=== PATIENT | female | born 1965 | race Caucasian/White ===

== ENCOUNTER → 2017-01-17 | Outpatient (CLI) | payer MEDICAID ==
[~2017-01-17] MED LIST: ALPR0.5T6 PO; B-1 PO; BIOTIN PO; DILT120C64 PO; FLEC50TA25 PO; FOLI0.4T2 PO; HYDR25TA11 PO; MAGN400T7 PO; MAGNESIUM PO; METO25TA35 PO; METO25TA91 PO; MULT1TAB60 PO; POTA20TA89 PO; POTASSIUM PO; RIVA20TA PO; SERT25TA PO; TOPI25TA32 PO; ZOLP10TA5 PO
[2017-01-17 12:53] LABS: ASPARTATE AMINO TRANSFERASE 19 U/L (15-37); BLOOD UREA NITROGEN 17 mg/dL (7-18)
== END | disposition home or self-care (01) ==
LOC: STAR 11:43
PROVIDERS: ATTEND Internal Medicine Cardiovascular Disease
DX: I48.91 Unspecified atrial fibrillation (principal)
CPT/HCPCS: 36415; 80053; 85025; 85610; 85730; 93005

== ENCOUNTER → 2017-01-17 | Outpatient (CLI) | payer MEDICAID ==
[~2017-01-17] MED LIST changes: -ALPR0.5T6 PO; +B-1; -B-1 PO; +BIOTIN; -BIOTIN PO; -MAGN400T7 PO; +OMNIPAQUE 350 MG/ML, 150 ML BOTTLE ONE; -POTA20TA89 PO; -ZOLP10TA5 PO
== END | disposition home or self-care (01) ==
LOC: CFH 10:10
PROVIDERS: ATTEND Internal Medicine Cardiovascular Disease
DX: I48.91 Unspecified atrial fibrillation (principal); Q67.6 Pectus excavatum; Z98.82 Breast implant status
CPT/HCPCS: 71020; 75572; Q9967

== ENCOUNTER 2017-01-22 06:36 | Observation (INO) | payer MEDICAID ==
[2017-01-17 12:01] VITALS: BP 117/75
[~2017-01-22] VITALS: Ht 161.3 cm; Wt 73.9 kg
[~2017-01-22 06:36] MED LIST changes: -B-1; +B-1 PO; -BIOTIN; +BIOTIN PO; -OMNIPAQUE 350 MG/ML, 150 ML BOTTLE ONE
[2017-01-22] MEDS ORDERED: SODIUM CHLORIDE 0.9% 1,000 ML IV SCH ×2 (06:46→07:00)
[2017-01-22] MEDS ORDERED: MAGN400T7 PO (07:11)
[2017-01-22] MEDS ORDERED: ALPR0.5T6 PO (07:11)
[2017-01-22] MEDS ORDERED: ZOLP10TA5 PO (07:11)
[2017-01-22] MEDS ORDERED: POTA20TA89 PO (07:11)
[2017-01-22] MEDS ORDERED: MIDAZOLAM 1 MG/ML, 5ML ONE (07:13)
[2017-01-22] MEDS ORDERED: FENTANYL PF 250 MCG/5ML ONE (07:13)
[2017-01-22] MEDS ORDERED: ISOPROTERENOL 0.2MG/ML, 5ML ONE (07:59)
[2017-01-22] MEDS ORDERED: PROTAMINE SULFATE 10 MG/ML, 5ML ONE (07:59)
[2017-01-22] MEDS ORDERED: LIDOCAINE 2%, 20ML ONE (07:59)
[2017-01-22] MEDS ORDERED: ADENOSINE 6 MG/2 ML ONE (07:59)
[2017-01-22] MEDS ORDERED: HEPARIN 1,000 UNITS/ML, 10ML ONE (07:59)
[2017-01-22] MEDS ORDERED: DEXAMETHASONE 4 MG/ML, 1ML ONE (08:00)
[2017-01-22] MEDS ORDERED: PROPOFOL 10 MG/ML, 20ML ONE (08:00)
[2017-01-22] MEDS ORDERED: SUCCINYLCHOLINE 20 MG/ML, 10ML ONE (08:00)
[2017-01-22] MEDS ORDERED: ONDANSETRON 2MG/ML, 2ML ONE (08:00)
[2017-01-22] MEDS ORDERED: MIDAZOLAM 1 MG/ML, 2ML IV PRN (11:30)
[2017-01-22] MEDS ORDERED: MEPERIDINE/PF 25MG/0.5ML IVPush PRN (11:30)
[2017-01-22] MEDS ORDERED: ACETAMINOPHEN 325 MG TABLET PO PRN (11:30)
[2017-01-22] MEDS ORDERED: ZOLPIDEM 10MG TABLET PO PRN (11:30)
[2017-01-22] MEDS ORDERED: ONDANSETRON 2MG/ML, 2ML IVPush PRN (11:30)
[2017-01-22] MEDS ORDERED: HYDROmorphone 1 MG/ML, 1ML IV PRN (11:30)
[2017-01-22] MEDS ORDERED: FENTANYL PF 100 MCG/2ML IV PRN (11:30)
[2017-01-22] MEDS ORDERED: ZOLPIDEM 5MG TABLET PO PRN (11:30)
[2017-01-22] MEDS ORDERED: OXYcodone 5 MG/5 ML ORAL.SOL UDC PO PRN (11:30)
[2017-01-22 13:53] VITALS: BP 116/75
[2017-01-22 19:51] VITALS: BP 135/84
[2017-01-22] MEDS: FLECAINIDE 50MG TABLET PO SCH (21:08)
[2017-01-22] MEDS: TOPIRAMATE 25 MG TABLET PO SCH (21:08)
[2017-01-23 01:08] VITALS: BP 100/65
[2017-01-23 07:06] VITALS: BP 113/70
[2017-01-23 07:45] VITALS: BP 117/74
[2017-01-23] MEDS: TOPIRAMATE 25 MG TABLET PO SCH (08:11)
[2017-01-23] MEDS: FLECAINIDE 50MG TABLET PO SCH (08:11)
[2017-01-23] MEDS ORDERED: BIOTIN 1000 MCG PO SCH (09:00)
[2017-01-23] MEDS ORDERED: DILTIAZEM 120 MG CAP.ER.24H PO SCH (09:00)
[2017-01-23] MEDS ORDERED: MAGNESIUM OXIDE 400 MG TABLET PO SCH (09:00)
[2017-01-23] MEDS ORDERED: FOLIC ACID 1 MG TABLET PO SCH ×2 (09:00)
[2017-01-23] MEDS ORDERED: SERTRALINE 50MG TABLET PO SCH (09:00)
[2017-01-23] MEDS ORDERED: MULTIVITAMIN 1 TABLET PO SCH (09:00)
[2017-01-23] MEDS ORDERED: THIAMINE 100MG TABLET PO SCH (09:00)
[2017-01-23] MEDS ORDERED: POTASSIUM CHLORIDE 20 MEQ TAB.ER.PRT PO SCH (09:00)
[2017-01-23] MEDS ORDERED: RIVAROXABAN 20 MG TABLET PO SCH (09:00)
== END 2017-01-23 10:40 | disposition home or self-care (01) ==
LOC: CACL 06:36 → ORIP 11:03 → 5SO 12:38 → DCLOUNGE 01-23 10:20
PROVIDERS: ADMIT Internal Medicine Cardiovascular Disease; ATTEND Internal Medicine Cardiovascular Disease
DX: I48.0 Paroxysmal atrial fibrillation (principal); I49.01 Ventricular fibrillation; I48.92 Unspecified atrial flutter
CPT/HCPCS: 85347; 93308; 93312; 93321; 93325; 93613; 93656; 93662; C1730; C1732; C1759; C1766; C1893; C1894; G0378; J0330; J1100; J1644; J2250; J2405; J2704; J2720; J3010; J3490; Q0177; J0153